=== PATIENT | female | born 1945 | race Caucasian/White ===

== ENCOUNTER 2017-03-14 08:30 | Emergency (ER) | payer OTHER, MEDICARE ==
[~2017-03-14] VITALS: Ht 162.6 cm; Wt 70.0 kg
[2017-03-14 10:00] LABS: EOSINOPHIL (%) 1.9 % (0-5); EOSINOPHIL COUNT 0.1 K/uL (0-0.3); IMMATURE GRANULOCYTE (%) 0.6 % (0.0-0.7); INSTRUMENT ABS NEUTROPHIL CT 3.9 K/uL; LYMPHOCYTE COUNT 1.7 K/uL (1.0-2.8); MCH 28.1 PG (29.0-34.0); MCHC 32.8 G/DL (30.0-36.0); MCV 85.8 FL (83-99); MEAN PLAT.VOLUME 8.8 uM^3 (9.5-12.4); MONOCYTE (%) 6.8 % (3-12); MONOCYTE COUNT 0.4 K/uL (0-0.8); NEUTROPHIL (%) 62.7 % (45-76); NEUTROPHIL COUNT 3.9 K/uL (1.8-6.4); PLATELET COUNT 263 K/uL (156-360); RBC DIS.WIDTH-CV 13.7 % (11.8-14.6); RBC DIS.WIDTH-SD 43.3 % (39-53); RED BLOOD COUNT 5.01 M/uL (3.80-5.20); WHITE BLOOD COUNT 6.2 K/uL (4.1-10.2)
[2017-03-14 10:09] LABS: CHLORIDE 105 mEq/L (99-109); POTASSIUM 3.9 mEq/L (3.7-5.4); SODIUM 143 mEq/L (136-147)
[2017-03-14 10:10] LABS: GLUCOSE 100 mg/dL (70-99)
[2017-03-14 10:12] LABS: ANION GAP 12 MEQ/L (2-14)
[2017-03-14 10:14] LABS: GFR ESTIMATE (CALCULATED) > 59 mL/min/
[2017-03-14 10:15] LABS: UREA NITROGEN (BUN) 17 mg/dL (9-23)
[2017-03-14 10:20] LABS: TROP-I INTERPRETATION NEGATIVE; TROPONIN-I < 0.01 ng/mL (0.0-0.30)
[2017-03-14 12:38] LABS: TROP-I INTERPRETATION NEGATIVE; TROPONIN-I < 0.01 ng/mL (0.0-0.30)
[2017-03-14 14:35] VITALS: BP 150/78
[2017-03-14] MEDS ORDERED: CHILDREN'S ASPI81 M1 PO (14:38)
[2017-03-14] MEDS ORDERED: MICROZIDE12.5 M1 PO (14:38)
== END 2017-03-14 14:00 | disposition home or self-care (01) ==
LOC: EME 08:30
PROVIDERS: Emergency Medicine
DX: R00.2 Palpitations (principal); I10 Essential (primary) hypertension
CPT/HCPCS: 71010; 80048; 84484; 85025; 93005; 99281; 99284